=== PATIENT | female | born 1995 | race Caucasian/White ===

== ENCOUNTER 2025-09-07 10:39 | Emergency (ER) | payer MEDICAID ==
[~2025-09-07] VITALS: Ht 165.1 cm; Wt 118.7 kg
[2025-09-07 10:52] VITALS: BP 155/98
--- NOTE | 2025-09-07 11:08 | Physician Documentation ---
History of Present Illness ~ Chief Complaint: Cold, cough & congestion Stated Complaint: ASTHMA Time Seen by MD: 11:01 Source: patient Mode of Arrival: POV Exam Limitations: no limitations HPI 30 year old female presents to the emergency room for complaints of flu symptoms that have been present for five days. She states that she believes she had recovered but complains of a persistent cough. She endorses cracking and wheezing when coughing. Medication Reconciliation Allergies: Coded Allergies: No Known Allergies (Unverified , 09/07/25) Scheduled Azithromycin (Azithromycin), 1 TAB PO UD Prednisone (Prednisone), 1 TAB PO BID Scheduled PRN albuterol inhaler (Pro-Air Inhaler), 2 PUFFS INH Q4HPRN PRN for wheezing Review of Systems All Other Systems at this time: Reviewed and Negative ROS Patient was asked, but denied any other symptoms. All other systems are negative other than those mentioned above. Physical Exam Vital Signs: RN Vital Signs have been reviewed: Yes, Temperature: 97.7, Source: Temporal, Heart Rate: 90, Respiratory Rate: 18, BP: 155/98, Pulse Oximetry: 98, Weight: 118.700 Oxygen Flow Rate: 0 Pulse Oximetry Reflects: adequate oxygenation Physical Exam General: Alert, no apparent distress. HEENT: PERRL, EOMI, no injection, moist mucous membranes. Neck: Full range of motion. Respiratory: Wheezes and rhonchi in right lung dover. Chest: No accessory muscle use. Cardiovascular: Regular rate and rhythm, no murmurs. Gastrointestinal: Soft, nontender, nondistended. Bowels sounds present. Extremities: Normal range of motion, no deformity. Neurologic: Oriented x4. Psychiatric: Normal mood and affect. Skin: Normal color, warm and dry. No edema, no ecchymosis. Progress Results/Orders Results/Orders Vital Signs 09/07/25 10:52 Temp 97.7 Pulse 90 Resp 18 B/P (MAP) 155/98 Pulse Ox 98 O2 Flow Rate 0 Medical Decision Making Additional information obtaine: old records Findings The patient presents to the all the clinical indications for acute bronchitis mild asthma which is likely secondary to chronic cigarette smoking. Going to treat her with a short dose of steroids sent in a additional inhaler to her pharmacy as she does not have current primary care in addition going to start her on azithromycin secondary to chronic cigarette smoking Differential Dx:Considerations: Include: Allergic rhinitis, Influenza, Otitis media, Peritonsillar abscess, Pharyngitis-Diphtheria, Pharyngitis-Streptoccal, Pharyngitis-Viral, Pneumonia, Pnuemonitis, Sinusitis, URI, Other Departure Time of Disposition: 11:24 Disposition: HOME / SELF CARE / HOMELESS Impression: Primary Impression: Acute bronchitis Discharge Instructions: Upper Respiratory Infection, Adult Referrals: NO PRIMARY CARE PROVIDER (PCP) Prescriptions albuterol inhaler (Pro-Air Inhaler) 8.5 Gm Inhaler 2 PUFFS INH Q4HPRN PRN for wheezing for 30 Days, #18 GM Prov: EZIO YOUNG NP 09/07/25 Prednisone (Prednisone) 10 Mg Tablet 1 TAB PO BID for 5 Days, #10 TAB Prov: EZIO YOUNG NP 09/07/25 Azithromycin (Azithromycin) 250 Mg Tablet 1 TAB PO UD for 5 Days, #6 TAB 2 the first day followed by 1 for days 2-5 Prov: EZIO YOUNG NP 09/07/25 Education Educated: Patient Educated regarding: diagnosis Signature Scribe Signature: Scribed for Ezio Young Boiler/Chiller Technician by Gabriel Anaya . 09/07/25 11:24 Attestation: Scribed for Ezio Young Boiler/Chiller Technician by Ezio Antoine NP . 09/07/25 11:13 EZIO YOUNG NP Sep 07, 2025 11:08 GABRIEL SIMPSON Sep 07, 2025 11:24
[2025-09-07] MEDS ORDERED: AZIT250T29 PO (11:11)
[2025-09-07] MEDS ORDERED: ALBU8HFA INH (11:11)
[2025-09-07] MEDS ORDERED: PRED10TA23 PO (11:11)
[2025-09-07 11:32] VITALS: PULSE 97; RESP 16; O2SAT 96
[2025-09-07] MEDS: ipratropium/albuterol 3ml nebule NEB ONE (11:32)
[2025-09-07 11:43] VITALS: PULSE 83; RESP 16; O2SAT 98
[2025-09-07 11:57] VITALS: TEMP 97.7
== END 2025-09-07 11:58 | disposition home or self-care (01) ==
LOC: ER 10:40
DX: J20.9 Acute bronchitis, unspecified (principal); Z79.899 Other long term (current) drug therapy
CPT/HCPCS: 94640; 94760; 99283